=== PATIENT | male | born 1980 | race Caucasian/White ===

== ENCOUNTER → 2016-10-22 | Outpatient (CLI) | payer OTHER | LOC: FIMAGING 08:29 | PROVIDERS: ATTEND Physician Assistant | DX: M51.27 Other intervertebral disc displacement, lumbosacral region (principal); M51.86 Other intervertebral disc disorders, lumbar region ==

== ENCOUNTER 2016-11-25 12:06 | Day surgery (SDC) | payer OTHER ==
[2016-11-25] MEDS ORDERED: FLUMAZENIL 0.5 MG/5 ML MDV IVP ONE (12:40)
[2016-11-25] MEDS ORDERED: NALOXONE HCL 0.4 MG/ML INJ ONE (12:41)
[2016-11-25] MEDS ORDERED: fentaNYL 100 MCG/2 ML INJ ONE (12:41)
[2016-11-25] MEDS ORDERED: MIDAZOLAM 2 MG/2 ML VIAL ONE (12:41)
[2016-11-25] MEDS ORDERED: LIDOCAINE 1% 300 MG/30 ML SDV ONE (15:32)
[2016-11-25] MEDS ORDERED: IOPAMIDOL (ISOVUE-M 300) 15 ML VIAL ONE (15:33)
[2016-11-25] MEDS ORDERED: TRIAMCINOLONE ACETONIDE 200 MG/5 ML MDV IM ONE (15:33)
[2016-11-25 16:17] VITALS: BP 111/71; PULSE 58; RESP 16; TEMP 97.5; O2SAT 98
== END 2016-11-25 16:10 | disposition home or self-care (01) ==
LOC: FIMAGING 12:06
PROVIDERS: ATTEND Physical Medicine & Rehabilitation
PROC: 3E0R33Z Introduction of Anti-inflammatory into Spinal Canal, Percutaneous Approach (ICD-10-PCS; principal; 2016-11-25 15:40)
PROC: 3E0R3BZ Introduction of Anesthetic Agent into Spinal Canal, Percutaneous Approach (ICD-10-PCS; principal; 2016-11-25 15:40)
DX: M54.17 Radiculopathy, lumbosacral region (principal)
CPT/HCPCS: J2250; J2310; J3010; J3301; Q9967

== ENCOUNTER → 2017-05-17 | Outpatient (CLI) | payer OTHER | LOC: FIMAGING 19:09 | PROVIDERS: ATTEND Neurological Surgery | DX: M51.27 Other intervertebral disc displacement, lumbosacral region (principal); G54.4 Lumbosacral root disorders, not elsewhere classified; M48.07 Spinal stenosis, lumbosacral region; M51.36 Other intervertebral disc degeneration, lumbar region; M51.26 Other intervertebral disc displacement, lumbar region; M46.96 Unspecified inflammatory spondylopathy, lumbar region; M48.061 Spinal stenosis, lumbar region without neurogenic claudication ==

== ENCOUNTER 2017-06-07 11:58 | Day surgery (SDC) | payer OTHER ==
[2017-06-07] MEDS ORDERED: NALOXONE HCL 0.4 MG/ML INJ IVP PRN (13:00)
[2017-06-07] MEDS ORDERED: NS 1,000 ML IV SCH (13:00)
[2017-06-07] MEDS ORDERED: MIDAZOLAM 2 MG/2 ML VIAL IVP PRN (13:00)
[2017-06-07] MEDS ORDERED: FLUMAZENIL 0.5 MG/5 ML MDV IVP PRN (13:00)
[2017-06-07] MEDS ORDERED: fentaNYL 100 MCG/2 ML INJ IVP PRN (13:00)
[2017-06-07] MEDS ORDERED: MEPERIDINE 25 MG/ML SYR IVP PRN (13:00)
[2017-06-07 13:27] VITALS: PULSE 60; RESP 16
--- NOTE | 2017-06-07 13:58 | PDGENHP ---
History & Physical Chief Complaint: LT LEG AND GLUTEAL PAIN History of Present Illness: H/O CAUDAL INJECTJION AND LT S1 SNRB, WHICH HELPED SOME OF THE LEG PAIN, LITTLE OF LT GLUTEAL PAIN Pertinent Past, Social, Family History: APPENDECTOMY, ORAL SURGERIES Relevant Physical Exam: LT LEG PAIN AND GLUTEAL PAIN Cardiorespiratory Assessment: RRR, CTA
--- NOTE | 2017-06-07 14:03 | PDPROPOC ---
Sedation Plan of Care Sedation Plan of Care: vital signs stable, mental status noted, patient educated of risks, benefits, alternatives, patient can tolerate sedation ASA Classification: ASA 1 Planned drugs: fentanyl, midazolam Mallampati Score: Class 1 Mallampati Reference Image: Patient passed 3-3-2 rule?: Yes
[2017-06-07] MEDS ORDERED: MIDAZOLAM 2 MG/2 ML VIAL ONE (14:35)
[2017-06-07] MEDS ORDERED: LIDOCAINE 1% 300 MG/30 ML SDV ONE (14:42)
[2017-06-07] MEDS ORDERED: TRIAMCINOLONE ACETONIDE 200 MG/5 ML MDV IM ONE (14:43)
[2017-06-07] MEDS ORDERED: ONDANSETRON 4 MG/2 ML VIAL IVP PRN (15:17)
[2017-06-07] MEDS ORDERED: ACETAMINOPHEN 325 MG TAB PO PRN (15:17)
--- NOTE | 2017-06-07 15:20 | PDRADPN ---
Radiology Procedure Note Date of Procedure: 06/07/17 Radiologist: Abida Lemos Pre-op Diagnosis: LBP Post-op Diagnosis: same Indication: recurrent pain Procedure: LT L5 SNRB AND TFESI Finding(s): REPRODUCTION OF PAIN Inf/Abcess present in the surg proc area at time of surgery?: No Complications: NONE
[2017-06-07 15:52] VITALS: BP 104/66; O2SAT 99
[2017-06-07 16:13] VITALS: TEMP 97.5
== END 2017-06-07 14:58 | disposition home or self-care (01) ==
LOC: FIMAGING 11:58
PROVIDERS: ATTEND Radiology Diagnostic Radiology
DX: M51.16 Intervertebral disc disorders with radiculopathy, lumbar region (principal)
CPT/HCPCS: J2250; J2310; J3010; J3301